=== PATIENT | male | born 1965 | race Caucasian/White ===

== ENCOUNTER 2017-08-06 00:27 | Emergency (ER) | payer OTHER ==
[~2017-08-06] VITALS: Ht 154.9 cm; Wt 55.0 kg
[~2017-08-06 00:27] MED LIST: NAPROSYN500 MG PO; PERCOCET 5/31 TABLET PO; PROVENTIL HFA6.7 GM IH; ULTRAM50 MG PO
[2017-08-06 00:33] VITALS: BP 104/73
[2017-08-06] MEDS ORDERED: BACTRIM,SEPT1 TABLET PO (00:58)
== END 2017-08-06 01:39 | disposition home or self-care (01) ==
LOC: EME 00:27 → EXP 00:27
PROC: 0H9DXZZ Drainage of Right Lower Arm Skin, External Approach (ICD-10-PCS; principal; 2017-08-06)
DX: L02.413 Cutaneous abscess of right upper limb (principal); K21.9 Gastro-esophageal reflux disease without esophagitis; F17.200 Nicotine dependence, unspecified, uncomplicated
CPT/HCPCS: 99281; 99283

== ENCOUNTER 2017-08-19 01:25 | Emergency (ER) | payer OTHER ==
[~2017-08-19] VITALS: Ht 162.6 cm; Wt 57.0 kg
[~2017-08-19 01:25] MED LIST changes: +BACTRIM,SEPT1 TABLET PO
[2017-08-19 01:32] VITALS: BP 123/78
[2017-08-19] MEDS ORDERED: CLEOCIN300 MG PO (03:09)
== END 2017-08-19 03:18 | disposition home or self-care (01) ==
LOC: EME 01:25
DX: L02.413 Cutaneous abscess of right upper limb (principal); L03.113 Cellulitis of right upper limb; F17.200 Nicotine dependence, unspecified, uncomplicated
CPT/HCPCS: 99281; 99283

== ENCOUNTER 2018-06-24 16:51 | Emergency (ER) | payer OTHER ==
[~2018-06-24] VITALS: Ht 165.1 cm; Wt 58.8 kg
[~2018-06-24 16:51] MED LIST changes: +CLEOCIN300 MG PO
[2018-06-24] MEDS ORDERED: ULTRAM50 MG PO (17:41)
[2018-06-24] MEDS ORDERED: BACTRIM,SEPT1 TABLET PO (17:41)
[2018-06-24 18:06] VITALS: BP 129/84
== END 2018-06-24 18:10 | disposition home or self-care (01) ==
LOC: EME 16:51 → RME 16:51
PROC: 0H9EXZZ Drainage of Left Lower Arm Skin, External Approach (ICD-10-PCS; principal; 2018-06-24)
DX: L02.414 Cutaneous abscess of left upper limb (principal); L03.114 Cellulitis of left upper limb
CPT/HCPCS: 99281; 99284